=== PATIENT | female | born 1995 | race African-American/Black ===

== ENCOUNTER 2016-10-05 15:43 | Emergency (ER) | payer MEDICAID, OTHER ==
[~2016-10-05] VITALS: Ht 167.6 cm; Wt 92.0 kg
[~2016-10-05 15:43] MED LIST: ERYTOIN10 EACH EYE; TRIMSOL3
[2016-10-05 15:44] VITALS: BP 121/77; PULSE 68; RESP 18; TEMP 98.2; O2SAT 96
--- NOTE | 2016-10-05 16:14 | PD ---
HPI Chief Complaint: Flank/Kidney Pain Time Seen by Provider: 16:03 Travel History International Travel<30 days: No Contact w/Intl Traveler<30days: No Traveled to known affect area: No History of Present Illness HPI Patient is a 21 year old female who presents to the ER with c/o of left sided flank pain. Patient reports that symptoms began 2 days ago, reports that she does have increased "pressure with urination." Patient denies hematuria, denies any urgency or frequency. Patient denies any fevers or chills. No history of kidney stones in the past. Patient denies any vaginal discharge or bleeding. Patient reports that she thinks that she may have a kidney infection. 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) MRSA 2013 Reported Meds & Prescriptions Reported Meds & Active Scripts Active No Active Prescriptions or Reported Medications Review of Systems General / Constitutional: No: Fever Eyes: No: Visual changes HENT: No: Headaches Cardiovascular: No: Chest Pain or Discomfort Respiratory: No: Shortness of Breath Gastrointestinal: No: Abdominal Pain Genitourinary: Positive: Dysuria, No: Urgency, Hematuria, Pelvic Pain, Discharge, Vaginal Bleeding Musculoskeletal: No: Pain Skin: No Rash Neurologic: No: Weakness Psychiatric: No: Depression Endocrine: No: Polydipsia Hematologic/Lymphatic: No: Easy Bruising Physical Exam Narrative GENERAL: No acute distress, nontoxic SKIN: Focused skin assessment warm/dry. HEAD: Atraumatic. Normocephalic. EYES: Pupils equal and round. No scleral icterus. No injection or drainage. ENT: No nasal bleeding or discharge. Mucous membranes pink and moist. NECK: Trachea midline. No JVD. CARDIOVASCULAR: Regular rate and rhythm. No murmur appreciated. RESPIRATORY: No accessory muscle use. Clear to auscultation. Breath sounds equal bilaterally. GASTROINTESTINAL: Abdomen soft, non-tender, nondistended. Left-sided flank pain : pelvic exam performed with RN at bedside, patient with no cmt or adnexal tenderness, no discharge MUSCULOSKELETAL: No obvious deformities. No clubbing. No cyanosis. No edema. NEUROLOGICAL: Awake and alert. Normal speech. PSYCHIATRIC: Appropriate mood and affect; insight and judgment normal. Data Data Last Documented VS Vital Signs Date Time Temp Pulse Resp B/P Pulse Ox O2 Delivery O2 Flow Rate FiO2 10/05/16 15:44 98.2 68 18 121/77 96 Orders Urinalysis - C+S If Indicated (10/05/16 16:06) Ed Urine Pregnancytest Poc (10/05/16 16:06) Ct Abd/Pel W/O Iv Contrast (10/05/16 16:30) Complete Blood Count With Diff (10/05/16 17:33) Basic Metabolic Panel (Bmp) (10/05/16 17:33) Gc And Chlamydia Pcr (10/05/16 17:33) Wet Prep Profile (10/05/16 17:33) Us Pelvis Comp W Doppler (10/05/16 17:33) Labs Laboratory Tests Test 10/05/16 10/05/16 16:10 17:45 Urine Color YELLOW Urine Turbidity CLEAR Urine pH 6.0 Urine Specific [place] 1.015 Urine Protein NEG mg/dL Urine Glucose (UA) NEG mg/dL Urine Ketones NEG mg/dL Urine Occult Blood NEG Urine Nitrite NEG Urine Bilirubin NEG Urine Leukocyte Esterase NEG Urine RBC 0-3 /hpf Urine WBC 0-2 /hpf Urine Squamous Epithelial 0-5 /hpf Cells Microscopic Urinalysis Comment CULT NOT INDICATED White Blood Count 5.6 TH/MM3 Red Blood Count 4.85 MIL/MM3 Hemoglobin 12.7 GM/DL Hematocrit 38.9 % Mean Corpuscular Volume 80.1 FL Mean Corpuscular Hemoglobin 26.1 PG Mean Corpuscular Hemoglobin 32.7 % Concent Red Cell Distribution Width 14.0 % Platelet Count 226 TH/MM3 Mean Platelet Volume 9.6 FL Neutrophils (%) (Auto) 47.7 % Lymphocytes (%) (Auto) 42.6 % Monocytes (%) (Auto) 7.3 % Eosinophils (%) (Auto) 1.5 % Basophils (%) (Auto) 0.9 % Neutrophils # (Auto) 2.6 TH/MM3 Lymphocytes # (Auto) 2.4 TH/MM3 Monocytes # (Auto) 0.4 TH/MM3 Eosinophils # (Auto) 0.1 TH/MM3 Basophils # (Auto) 0.1 TH/MM3 CBC Comment DIFF FINAL Differential Comment Clue Cells (Wet Prep) NONE SEEN Vaginal Trichomonas (Wet Prep) NONE SEEN Vaginal Yeast (Wet Prep) NONE SEEN Sodium Level 142 MEQ/L Potassium Level 3.9 MEQ/L Chloride Level 108 MEQ/L Carbon Dioxide Level 26.6 MEQ/L Anion Gap 7 MEQ/L Blood Urea Nitrogen 9 MG/DL Creatinine 0.63 MG/DL Estimat Glomerular Filtration 146 ML/MIN Rate Random Glucose 88 MG/DL Calcium Level 8.9 MG/DL MDM Medical Decision Making Medical Screen Exam Complete: Yes Emergency Medical Condition: Yes Interpretation(s) Vital Signs Date Time Temp Pulse Resp B/P Pulse Ox O2 Delivery O2 Flow Rate FiO2 10/05/16 15:44 98.2 68 18 121/77 96 Differential Diagnosis Cystitis, pyelonephritis, kidney stone, muscle strain, cervicitis though unlikely as patient denies vaginal discharge, ovarian cyst, ovarian torsion Narrative Course Patient is a 21-year-old female who presents to emergency room for evaluation of possible UTI. Patient reports that she has been having left-sided flank pain as well as dysuria with urination for the past 2 days. She with no fevers or chills, denies nausea or vomiting. Patient with no history of kidney stones in the past. Overall, patient nontoxic on evaluation. Plan to obtain UA and check for urine Laboratory Tests Test 10/05/16 10/05/16 16:10 17:45 Urine Color YELLOW (YELLW/STRAW) Urine Turbidity CLEAR (CLEAR) Urine pH 6.0 (5.0-8.5) Urine Specific [place] 1.015 (1.002-1.035) Urine Protein NEG mg/dL (NEG-TRACE) Urine Glucose (UA) NEG mg/dL (NEG) Urine Ketones NEG mg/dL (NEG) Urine Occult Blood NEG (NEG) Urine Nitrite NEG (NEG) Urine Bilirubin NEG (NEG) Urine Leukocyte Esterase NEG (NEG) Urine RBC 0-3 /hpf (0-3) Urine WBC 0-2 /hpf (0-5) Urine Squamous Epithelial 0-5 /hpf (0-5) Cells Microscopic Urinalysis Comment CULT NOT INDICATED White Blood Count 5.6 TH/MM3 (4.0-11.0) Red Blood Count 4.85 MIL/MM3 (4.00-5.30) Hemoglobin 12.7 GM/DL (11.6-15.3) Hematocrit 38.9 % (35.0-46.0) Mean Corpuscular Volume 80.1 FL (80.0-100.0) Mean Corpuscular Hemoglobin 26.1 PG (27.0-34.0) Mean Corpuscular Hemoglobin 32.7 % Concent (32.0-36.0) Red Cell Distribution Width 14.0 % (11.6-17.2) Platelet Count 226 TH/MM3 (150-450) Mean Platelet Volume 9.6 FL (7.0-11.0) Neutrophils (%) (Auto) 47.7 % (16.0-70.0) Lymphocytes (%) (Auto) 42.6 % (9.0-44.0) Monocytes (%) (Auto) 7.3 % (0.0-8.0) Eosinophils (%) (Auto) 1.5 % (0.0-4.0) Basophils (%) (Auto) 0.9 % (0.0-2.0) Neutrophils # (Auto) 2.6 TH/MM3 (1.8-7.7) Lymphocytes # (Auto) 2.4 TH/MM3 (1.0-4.8) Monocytes # (Auto) 0.4 TH/MM3 (0-0.9) Eosinophils # (Auto) 0.1 TH/MM3 (0-0.4) Basophils # (Auto) 0.1 TH/MM3 (0-0.2) CBC Comment DIFF FINAL Differential Comment Clue Cells (Wet Prep) NONE SEEN (NONE) Vaginal Trichomonas (Wet Prep) NONE SEEN (NONE) Vaginal Yeast (Wet Prep) NONE SEEN (NONE) Sodium Level 142 MEQ/L (136-145) Potassium Level 3.9 MEQ/L (3.5-5.1) Chloride Level 108 MEQ/L (98-107) Carbon Dioxide Level 26.6 MEQ/L (21.0-32.0) Anion Gap 7 MEQ/L (5-15) Blood Urea Nitrogen 9 MG/DL (7-18) Creatinine 0.63 MG/DL (0.50-1.00) Estimat Glomerular Filtration 146 ML/MIN Rate (>89) Random Glucose 88 MG/DL (74-106) Calcium Level 8.9 MG/DL (8.5-10.1) Last Impressions Abdomen/Pelvis CT 10/05/16 1630 Signed Impressions: Service Date/Time: Wednesday, October 05, 2016 16:59 - CONCLUSION: 1. No renal calculi or obstruction. 2. 4.7 x 4 cm low attenuation mass just above the bladder which appears located in the left ovary. This is most consistent with an ovarian cystic lesion. Collins Santa MD patient with 4.7x4cm left sided ovarian cyst, pelvic US ordered to r/o ovarian torsion Patient signed out to care of Dr. Rm at change of shift Diagnosis Primary Impression: Ovarian cyst Qualified Code: N83.202 - Cyst of left ovary Scripts No Active Prescriptions or Reported Meds Shreya Huizar DO Oct 05, 2016 16:14
[2016-10-05 16:24] LABS: BLOOD, URINE NEG (NEG); GLUCOSE,URINE NEG (NEG); KETONE, URINE NEG (NEG); NITRITE,URINE NEG (NEG)
[2016-10-05 16:28] LABS: URINE COLOR YELLOW (YELLW/STRAW)
[2016-10-05 16:29] LABS: COMMENT (UR) CULT NOT INDICATED; CULTURE IF INDICATED CULT NOT INDICATED; RBC, URINE 0-3 /hpf (0-3); SQUAMOUS EPITHELIAL CELL URINE 0-5 /hpf (0-5); WBC, URINE 0-2 /hpf (0-5)
--- NOTE | 2016-10-05 17:20 | RADHPO ---
EXAM DATE/TIME: 10/05/2016 16:59 [facility] COMPARISON: No previous studies available for comparison. INDICATIONS : Left flank pain. ORAL CONTRAST: No oral contrast ingested. RADIATION DOSE: 21.17 CTDIvol (mGy) MEDICAL HISTORY : None SURGICAL HISTORY : None. ENCOUNTER: Initial ACUITY: 3 days PAIN SCALE: 4/10 LOCATION: Left flank TECHNIQUE: Volumetric scanning of the abdomen and pelvis was performed. Using automated exposure control and ad justment of the mA and/or kV according to patient size, radiation dose was kept as low as reasonably achievable to obtain optimal diagnostic quality images. FINDINGS: LOWER LUNGS: The visualized lower lungs are clear. LIVER: Homogeneous density without lesion. There is no dilation of the biliary tree. No calcified gallston es. SPLEEN: Normal size without lesion. PANCREAS: Within normal limits. KIDNEYS: Normal in size and shape. There is no mass, stone, or hydronephrosis. ADRENAL GLANDS: Within normal limits. VASCULAR: There is no aortic aneurysm. BOWEL/MESENTERY: The stomach, small bowel, and colon demonstrate no acute abnormality. There is no free intraperitone al air or fluid. ABDOMINAL WALL: Within normal limits. RETROPERITONEUM: There is no lymphadenopathy. BLADDER: No wall thickening or mass. REPRODUCTIVE: There is a 4.7 x 4 cm cystic mass just above the bladder which appears located in the left ovary. The uterus is unremarkable. INGUINAL: There is no lymphadenopathy or hernia. MUSCULOSKELETAL: Within normal limits for patient age. CONCLUSION: 1. No renal calculi or obstruction. 2. 4.7 x 4 cm low attenuation mass just above the bladder which appears located in the left ovary. This is most consistent with an ovarian cystic lesion. Collins Santa MD on October 05, 2016 at 17:15 Board Certified Radiologist. This report was verified electronically.
[2016-10-05 18:02] LABS: AUTOMATED NEUTROPHIL # 2.6 TH/MM3 (1.8-7.7); BASOPHIL # 0.1 TH/MM3 (0-0.2); BASOPHIL % 0.9 % (0.0-2.0); EOSINOPHIL # 0.1 TH/MM3 (0-0.4); EOSINOPHIL % 1.5 % (0.0-4.0); HEMATOCRIT 38.9 % (35.0-46.0); HEMO FLAGS DIFF FINAL; LYMPH % 42.6 % (9.0-44.0); LYMPHOCYTE # 2.4 TH/MM3 (1.0-4.8); MEAN CELL VOLUME 80.1 FL (80.0-100.0); MEAN CORPUSCULAR HEMOGLOBIN 26.1 PG (27.0-34.0); MEAN CORPUSCULAR HGB CONC 32.7 % (32.0-36.0); MONO % 7.3 % (0.0-8.0); NEUT % 47.7 % (16.0-70.0); PLATELET COUNT 226 TH/MM3 (150-450); RED BLOOD COUNT 4.85 MIL/MM3 (4.00-5.30); WHITE BLOOD COUNT 5.6 TH/MM3 (4.0-11.0)
[2016-10-05 18:10] LABS: POTASSIUM 3.9 MEQ/L (3.5-5.1)
[2016-10-05 18:13] LABS: BICARBONATE 26.6 MEQ/L (21.0-32.0)
[2016-10-05 19:02] VITALS: BP 121/71; PULSE 63; RESP 18; O2SAT 100
--- NOTE | 2016-10-05 19:18 | RADHPO ---
EXAM DATE/TIME: 10/05/2016 18:29 [facility] COMPARISON: CT ABDOMEN & PELVIS W/O CONTRAST, October 05, 2016, 16:59. INDICATIONS : Pelvic pain. MEDICAL HISTORY : Ovarian cysts. MRSA. SURGICAL HISTORY : Tympanostomy tube. ENCOUNTER: Initial ACUITY: 2 days PAIN SCORE: 6/10 LOCATION: Bilateral pelvis MEASUREMENTS: UTERUS: 8.6 x 4.3 x 3.2 cm ENDOMETRIAL STRIPE: 8 mm RIGHT OVARY: 3.5 x 2.0 x 1.6 cm LEFT OVARY: 5.1 x 4.5 x 3.6 cm FINDINGS: UTERUS: The myometrium has homogeneous echotexture without mass. RIGHT OVARY: Ovary contains no mass or significant cystic lesion. Blood flow is seen to the right ovary. LEFT OVARY: There is a complex nonvascular mass in the left adnexal region measures 4.1 x 3.3 x 4.4 cm in size. B lood flow seen to the left ovary. MISCELLANEOUS: No free fluid. CONCLUSION: Complex left ovarian cyst. Followup transvaginal pelvic ultrasound recommended in 8-12 weeks to confi rm resolution. No torsion. Uterus and right ovary within normal limits. Minesh Cavanaugh MD on October 05, 2016 at 19:14 Board Certified Radiologist. This report was verified electronically.
--- NOTE | 2016-10-05 19:23 | PD ---
Physical Exam Date Seen by Provider: Oct 05, 2016 Time Seen by Provider: 19:22 Narrative Accepted in transfer of care from Dr. Huizar GENERAL: Well-developed well-nourished female in no acute distress no respiratory distress GASTROINTESTINAL: Abdomen soft, mild tenderness to palpation left lower quadrant without guarding or rebound, nondistended. Data Data Last Documented VS Vital Signs Date Time Temp Pulse Resp B/P Pulse Ox O2 Delivery O2 Flow Rate FiO2 10/05/16 19:08 20 10/05/16 19:02 63 121/71 100 Room Air 10/05/16 15:44 98.2 Orders Urinalysis - C+S If Indicated (10/05/16 16:06) Ed Urine Pregnancytest Poc (10/05/16 16:06) Ct Abd/Pel W/O Iv Contrast (10/05/16 16:30) Complete Blood Count With Diff (10/05/16 17:33) Basic Metabolic Panel (Bmp) (10/05/16 17:33) Gc And Chlamydia Pcr (10/05/16 17:33) Wet Prep Profile (10/05/16 17:33) Us Pelvis Comp W Doppler (10/05/16 17:33) Labs Laboratory Tests Test 10/05/16 10/05/16 16:10 17:45 Urine Color YELLOW Urine Turbidity CLEAR Urine pH 6.0 Urine Specific [place] 1.015 Urine Protein NEG mg/dL Urine Glucose (UA) NEG mg/dL Urine Ketones NEG mg/dL Urine Occult Blood NEG Urine Nitrite NEG Urine Bilirubin NEG Urine Leukocyte Esterase NEG Urine RBC 0-3 /hpf Urine WBC 0-2 /hpf Urine Squamous Epithelial 0-5 /hpf Cells Microscopic Urinalysis Comment CULT NOT INDICATED White Blood Count 5.6 TH/MM3 Red Blood Count 4.85 MIL/MM3 Hemoglobin 12.7 GM/DL Hematocrit 38.9 % Mean Corpuscular Volume 80.1 FL Mean Corpuscular Hemoglobin 26.1 PG Mean Corpuscular Hemoglobin 32.7 % Concent Red Cell Distribution Width 14.0 % Platelet Count 226 TH/MM3 Mean Platelet Volume 9.6 FL Neutrophils (%) (Auto) 47.7 % Lymphocytes (%) (Auto) 42.6 % Monocytes (%) (Auto) 7.3 % Eosinophils (%) (Auto) 1.5 % Basophils (%) (Auto) 0.9 % Neutrophils # (Auto) 2.6 TH/MM3 Lymphocytes # (Auto) 2.4 TH/MM3 Monocytes # (Auto) 0.4 TH/MM3 Eosinophils # (Auto) 0.1 TH/MM3 Basophils # (Auto) 0.1 TH/MM3 CBC Comment DIFF FINAL Differential Comment Clue Cells (Wet Prep) NONE SEEN Vaginal Trichomonas (Wet Prep) NONE SEEN Vaginal Yeast (Wet Prep) NONE SEEN Sodium Level 142 MEQ/L Potassium Level 3.9 MEQ/L Chloride Level 108 MEQ/L Carbon Dioxide Level 26.6 MEQ/L Anion Gap 7 MEQ/L Blood Urea Nitrogen 9 MG/DL Creatinine 0.63 MG/DL Estimat Glomerular Filtration 146 ML/MIN Rate Random Glucose 88 MG/DL Calcium Level 8.9 MG/DL MDM Medical Record Reviewed: Yes Supervised Visit with ARNIE: No Interpretation(s) CBC & BMP Diagram 10/05/16 17:45 Last Impressions Pelvis Ultrasound 10/05/16 1733 Signed Impressions: Service Date/Time: Wednesday, October 05, 2016 18:29 - CONCLUSION: Complex left ovarian cyst. Followup transvaginal pelvic ultrasound recommended in 8-12 weeks to confirm resolution. No torsion. Uterus and right ovary within normal limits. Minesh Cavanaugh MD Abdomen/Pelvis CT 10/05/16 1630 Signed Impressions: Service Date/Time: Wednesday, October 05, 2016 16:59 - CONCLUSION: 1. No renal calculi or obstruction. 2. 4.7 x 4 cm low attenuation mass just above the bladder which appears located in the left ovary. This is most consistent with an ovarian cystic lesion. Collins Santa MD Differential Diagnosis Accepted in transfer of care from Dr. Huizar; please refer to her dictation Narrative Course Accepted in transfer of care from Dr. Huizar for follow-up of pending ultrasound and patient disposition Ultrasound pelvis consistent with left ovarian cyst without evidence of torsion ; This information is been shared with the patient who is aware that she needs to have follow-up with ultrasound and eighth 12 weeks regarding the ovarian cyst. She is stable for outpatient management. Patient is provided with prescription for Anaprox DS. Diagnosis Primary Impression: Ovarian cyst Qualified Code: N83.202 - Cyst of left ovary Referrals: Health Care Liaison call for appointment Patient Instructions: General Instructions Additional Instruction: Follow-up with microscopist for repeat ultrasound in 8-12 weeks Return to the emergency department for any concerns or change in condition Take Anaprox as prescribed as needed as tolerated for pain associated with inflammation/ovarian cyst Return to the emergency department for any concerns or change in condition Med/Other Pt SpecificInfo: Prescription(s) given Scripts Naproxen Sodium DS (Anaprox DS)550 Mg [id number] Mg PO Q12HR PRN (PAIN GREATER THAN 6) #15 TAB Ref 0 Prov:Valeria Rm MD 10/05/16 Disposition: 01 DISCHARGE HOME Condition: Stable Valeria Rm MD Oct 05, 2016 19:23
[2016-10-05] MEDS ORDERED: NAPR550 PO (19:43)
[2016-10-05 21:24] LABS: CHLAMYDIA PCR NOT DETECTED (NOT DETECT); NEISSERIA PCR NOT DETECTED (NOT DETECT)
== END 2016-10-05 20:08 | disposition home or self-care (01) ==
LOC: PHED 15:43
DX: N83.202 Unspecified ovarian cyst, left side (principal); R30.0 Dysuria
CPT/HCPCS: 74176; 76856; 80048; 81001; 84703; 85025; 87210; 87491; 87591; 93975

== ENCOUNTER 2017-10-01 19:01 | Emergency (ER) | payer MEDICAID ==
[~2017-10-01] VITALS: Ht 167.6 cm; Wt 95.2 kg
[~2017-10-01 19:01] MED LIST changes: -ERYTOIN10 EACH EYE; +NAPR5TAB5 PO; -TRIMSOL3
[2017-10-01 19:07] VITALS: BP 129/68; PULSE 69; RESP 18; TEMP 99.3; O2SAT 99
[2017-10-01] MEDS ORDERED: IBUP1TAB7 PO (19:31)
--- NOTE | 2017-10-01 19:31 | PD ---
HPI Chief Complaint: Musculoskeletal Complaint Time Seen by Provider: 19:17 Travel History International Travel<30 days: No Contact w/Intl Traveler<30days: No Traveled to known affect area: No History of Present Illness HPI 22-year-old female here with right knee pain after minor twisting injury 2 weeks ago. She reports the area has been intermittently painful worse with range of motion long periods of standing. Denies altered sensation or weakness. Pain is localized to the medial aspect and anterior portion of the knee. Pain is reproducible to palpation. Slightly relieved with resting. Symptom severity is mild to moderate. PFSH Past Medical History Medical History: Denies Significant Hx Diminished Hearing: No Respiratory: Yes (CHRONIC BRONCHITIS) Immunizations Current: Yes Tetanus Vaccination: > 5 Years Influenza Vaccination: Yes ?: Not LMP: 09/08/2017 Past Surgical History Tympanostomy Tube: Yes Social History Alcohol Use: Yes (SOCIAL) Tobacco Use: No Substance Use: No Allergies-Medications (Allergen,Severity, Reaction): Coded Allergies: clarithromycin (Unverified Allergy, Mild, RASH, 10/01/17) *MDRO Multi-Drug Resistant Organism (Unverified Allergy, Unknown, 10/01/17) MRSA 2013 Reported Meds & Prescriptions Reported Meds & Active Scripts Active Ibuprofen 800 Mg Tab 800 Mg PO Q6HR PRN Review of Systems Except as stated in HPI: all other systems reviewed are Neg General / Constitutional: No: Fever Eyes: No: Visual changes HENT: No: Headaches Cardiovascular: No: Chest Pain or Discomfort Respiratory: No: Shortness of Breath Gastrointestinal: No: Abdominal Pain Genitourinary: No: Dysuria Physical Exam Narrative GENERAL: Alert and well-appearing 22-year-old female. Patient resting comfortably on stretcher. No distress. SKIN: Warm and dry. HEAD: Normocephalic. EYES:No injection or drainage. NECK: Supple CARDIOVASCULAR: Regular rate and rhythm RESPIRATORY: Breath sounds equal bilaterally. No accessory muscle use. GASTROINTESTINAL: Abdomen soft, non-tender, nondistended. MUSCULOSKELETAL: No cyanosis. Right lower extremely: +TTP over the medial aspect of the knee. Small joint effusion. Patient is able to flex and extend the knee without difficulty. No posterior knee pain. No calf tenderness. Negative Homans sign. 2+ distal pulses. Normal sensation. Brisk cap refill. BACK: Nontender without obvious deformity. No CVA tenderness. Data Data Last Documented VS Vital Signs Date Time Temp Pulse Resp B/P (MAP) Pulse Ox O2 Delivery O2 Flow Rate FiO2 10/01/17 19:07 99.3 69 18 129/68 (88) 99 MDM Medical Decision Making Medical Screen Exam Complete: Yes Emergency Medical Condition: Yes Differential Diagnosis MCL injury, knee sprain, arthralgia Narrative Course 22-year-old female here with right knee pain. She is a small joint effusion. The extremity is neurovascularly intact. This is likely area minor strain/ sprain. Mitchell wrap was applied. She was instructed ice and elevate. NSAIDs. Follow-up with primary ortho Diagnosis Primary Impression: Knee sprain Qualified Codes: S83.91XA - Sprain of unspecified site of right knee, initial encounter Referrals: Orthopedist Primary Care Physician Departure Forms: Tests/Procedures, Work Release Special Instructions: No prolonged standing or walking for 1 week Additional Instructions: Mitchell wrap for support. Ice and elevate the knee. Medication as directed. Follow up with your primary doctor Scripts Ibuprofen (Ibuprofen) 800 Mg Tab 800 MG PO Q6HR Y for PAIN, #40 TAB 0 Refills Prov: Mari Mitchell 10/01/17 Disposition: 01 DISCHARGE HOME Condition: Stable Mari Mitchell Oct 01, 2017 19:31
== END 2017-10-01 19:39 | disposition home or self-care (01) ==
LOC: PHEFT 19:01
DX: S83.91XA Sprain of unspecified site of right knee, initial encounter (principal); X50.1XXA Overexertion from prolonged static or awkward postures, initial encounter; Z88.8 Allergy status to other drugs, medicaments and biological substances
CPT/HCPCS: 99283